=== PATIENT | male | born 1945 | race Caucasian/White ===

== ENCOUNTER 2017-06-09 06:18 | Observation (INO) | payer OTHER ==
[~2017-06-09] VITALS: Ht 172.7 cm; Wt 97.4 kg
[2017-06-09] VITALS (8 sets, daily range): BP systolic 142–151; BP diastolic 94–102; PULSE 71–102; RESP 16–20; TEMP 95.3–97.4; O2SAT 96–99
[2017-06-09] MEDS ORDERED: METOPROLOL TARTRATE 25 MG TAB PO PRN (06:45)
[2017-06-09] MEDS ORDERED: SODIUM CHLORID 0.9% 500 ML IV PRN (06:45)
[2017-06-09] MEDS ORDERED: POVIDONE IODINE 5% (ANTISEPSIS KIT) 4 APPLICATIONS EACH NARE PRN (06:45)
[2017-06-09] MEDS ORDERED: LACTATED RINGER'S 1000 ML IV PRN (06:45)
[2017-06-09] MEDS ORDERED: CHLORHEXIDINE GLUCONATE 2 % 1 PACK (2 CLOTHS) TOPICAL PRN (06:45)
[2017-06-09] MEDS ORDERED: INSULIN HUMAN REGULAR 1,000 UNITS/10 ML VIAL SQ PRN (06:45)
[2017-06-09] MEDS ORDERED: APIX5TAB PO (06:47)
[2017-06-09] MEDS ORDERED: AMPICILLIN/SULBAC 3 GM/NS 100 ML IV SCH ×2 (07:00)
[2017-06-09] MEDS ORDERED: LIDOCAINE 1%/EPINEPHrine 1:100,000 SOLN 30 ML VIAL ONE (07:11)
[2017-06-09] MEDS ORDERED: ALLO300T2 PO (07:11)
[2017-06-09] MEDS ORDERED: OXYMETAZOLINE HCL 0.05% 15 ML NASAL SPRAY ONE (07:11)
[2017-06-09] MEDS ORDERED: DILT120T PO (07:11)
[2017-06-09] MEDS ORDERED: BACITRACIN TOP OINT 15 GM TUBE ONE (07:11)
[2017-06-09] MEDS ORDERED: HYDR12.57 PO (07:11)
[2017-06-09] MEDS ORDERED: CHIL5SOL (07:11)
[2017-06-09] MEDS ORDERED: VENTAER INH (07:11)
[2017-06-09] MEDS ORDERED: METO25TA6 PO (07:11)
[2017-06-09] MEDS ORDERED: MIDAZOLAM HCL 2 MG/2 ML VIAL ONE (08:14)
[2017-06-09] MEDS ORDERED: ACETAMINOPHEN 1000 MG/100 ML VIAL IV ONE (08:14)
[2017-06-09] MEDS ORDERED: DEXAMETHASONE SOD PHOS 4 MG/ML VIAL ONE (08:14)
[2017-06-09] MEDS ORDERED: DO NOT ADM ANY ANTICOAGULANT DRUGS PRN (09:12)
[2017-06-09] MEDS ORDERED: fentaNYL CITRATE 250 MCG/5 ML AMP ONE (09:14)
[2017-06-09] MEDS ORDERED: *Lactated Ringer's INJ 1,000 ML ONE (09:42)
[2017-06-09] MEDS ORDERED: ONDANSETRON HCL 4 MG/2 ML VIAL IV PUSH PRN (11:00)
[2017-06-09] MEDS ORDERED: ACETAMINOPHEN/HYDROcodone 325 MG/5 MG TAB PO PRN (11:00)
[2017-06-09] MEDS ORDERED: NEOSTIGMINE 3 MG/3 ML SYR IV ONE (12:00)
[2017-06-09] MEDS ORDERED: PROPOFOL 200 MG/20 ML AMP IV ONE (12:00)
[2017-06-09] MEDS ORDERED: ONDANSETRON HCL 4 MG/2 ML VIAL IV PUSH ONE (12:00)
--- NOTE | 2017-06-09 13:30 | MP ---
cc: GONZALO LEON M.D. DATE OF SURGERY 06/09/2017 SURGEON Gonzalo leon MD PREOPERATIVE DIAGNOSIS 1. Epistaxis 2. Chronic anticoagulation 3. Nasal airway obstruction 4. Nasal septal deviation 5. Hypertrophy of inferior turbinates POSTOPERATIVE DIAGNOSIS 1. Epistaxis 2. Chronic anticoagulation 3. Nasal airway obstruction 4. Nasal septal deviation 5. Hypertrophy of inferior turbinates OPERATION PERFORMED 1. Open repair nasal septal fracture 2. Bilateral submucosal resection of inferior turbinates 3. Bilateral endoscopic control of epistaxis INDICATIONS The indications are documented in the history and physical. DESCRIPTION OF OPERATION The patient was taken to OR #2 placed in the supine position. Following induction of general anesthesia and intubation, the nose was packed bilaterally with cotton pledgets saturated in 0.057 Oxymetazoline. The nasal septal mucosa and inferior turbinates were injected with a total of 6 mL of 1% Xylocaine with epinephrine 1:100,000. He then prepped and draped for surgery. The packing was removed and a hemitransfixion incision was made in the left nasal vestibule. Through this incision, the septal mucosa was elevated as far as the junction of the bony and cartilaginous septum. This exposed the quadrangular cartilage which showed numerous irregular points and spurs primarily on the left side with displacement of the quadrangular cartilage and the maxillary crest toward the left side. A cumulative area of 2 x 2.5 cm was removed preserving 1.5 cm dorsal and caudal cartilaginous struts. Next, the mucosa was elevated from the bony septum in the maxillary crest and these were removed using [place] Smith forceps and a 6-mm Krystle chisel. The incision was then closed with a running suture of 4-0 chromic. The mucosal layers of the septum were then approximated to each other with a quilting stitch of 4-0 plain gut. At this point, the nose examined endoscopically and numerous small granulomas of the septal mucosa were identified on each side. These were removed using the needle tip Bovie at 12 yoder. The inferior turbinates were addressed next. They were fractured out medially and stab incisions opened along their inferior surfaces through these incisions. The submucosal soft tissue was reduced using a curette and preserving the conchal bone. The incision was then cauterized using the suction Bovie at 35 yoder. The remnants the inferior turbinates were then we lateralized to the lateral nasal wall. The nose was then packed with 5.5 cm rapid rhino packs and each one was inflated with 5 mL of air. The procedure was then terminated. The patient was reversed from anesthesia and taken to recovery in good condition. No complications. Blood loss 80 mL. MD ELZBIETA Talbot/ODALIS /9:45 AM /1:26 PM
[2017-06-09] MEDS: AMPICILLIN/SULBAC 3 GM/NS 100 ML IV SCH ×4 (17:17→22:56)
--- NOTE | 2017-06-09 19:02 | EKG ---
Date Performed: 06/09/2017 Time Performed: 07:00:24 PTAGE: 72 years EKG: ATRIAL FIBRILLATION WITH SLOW VENTRICULAR RESPONSE ABNORMAL RHYTHM ECG NO PREVIOUS TRACING DOCTOR: Mario Luna Interpretating Date/Time 06/09/2017 19:00:35
[2017-06-09] MEDS ORDERED: HYDROCHLOROTHIAZIDE 12.5 MG CAP PO SCH (21:00)
[2017-06-09] MEDS ORDERED: DILTIAZEM-CD 120 MG CAP ER PO SCH (21:00)
[2017-06-09] MEDS ORDERED: METOPROLOL TARTRATE 25 MG TAB PO SCH (21:00)
[2017-06-10] VITALS: BP 157/90; PULSE 87; RESP 20; TEMP 95.6; O2SAT 96
[2017-06-10 04:00] VITALS: BP 148/92; PULSE 85; RESP 20; TEMP 96.5; O2SAT 95
[2017-06-10 07:40] VITALS: O2SAT 97
[2017-06-10 08:00] VITALS: BP 147/98; PULSE 70; RESP 18; TEMP 97.7; O2SAT 96
== END 2017-06-10 09:17 | disposition home or self-care (01) ==
LOC: PHSDC 06:18 → PH3B 08:39
PROVIDERS: ADMIT Otolaryngology; ATTEND Otolaryngology
PROC: 0W3Q8ZZ Control Bleeding in Respiratory Tract, Via Natural or Artificial Opening Endoscopic (ICD-10-PCS; 2017-06-09)
PROC: 09TL0ZZ Resection of Nasal Turbinate, Open Approach (ICD-10-PCS; principal; 2017-06-09 08:17)
DX: R04.0 Epistaxis (principal); J34.2 Deviated nasal septum; J34.3 Hypertrophy of nasal turbinates; J34.89 Other specified disorders of nose and nasal sinuses; I48.91 Unspecified atrial fibrillation; I10 Essential (primary) hypertension; Z79.899 Other long term (current) drug therapy; Z79.01 Long term (current) use of anticoagulants
CPT/HCPCS: 00160; 30140; 31238; 93005; 94762; G0378; J0131; J0295; J1100; J2250; J2405; J2710; J3010; J7120